=== PATIENT | male | born 1980 | race Caucasian/White ===

== ENCOUNTER 2018-12-04 16:57 | Emergency (ER) | payer SELFPAY | END 2018-12-04 18:02 | disposition home or self-care (01) | LOC: JERFT 16:57 ==

== ENCOUNTER 2021-12-06 16:07 | Emergency (ER) | payer SELFPAY ==
[2021-12-06 16:22] VITALS: BP 115/73; PULSE 59; TEMP 98; BMI 25.0
== END 2021-12-06 17:07 | disposition home or self-care (01) ==
LOC: FER 16:07
DX: S16.1XXA Strain of muscle, fascia and tendon at neck level, initial encounter (principal); S29.012A Strain of muscle and tendon of back wall of thorax, initial encounter; V89.2XXA Person injured in unspecified motor-vehicle accident, traffic, initial encounter
CPT/HCPCS: 72050-TC-FY; 99283-25